=== PATIENT | male | born 1950 | race Caucasian/White ===

== ENCOUNTER → 2017-04-16 | Outpatient (REF) | payer MEDICARE, BC | LOC: M SMT 13:10 | PROVIDERS: ATTEND Nurse Practitioner Women's Health | DX: R31.29 Other microscopic hematuria (principal) | CPT/HCPCS: 81001; 87086; 88108; G0463 ==

== ENCOUNTER → 2017-10-19 | Outpatient (CLI) | payer MEDICARE, BC | LOC: M RAD 14:08 | DX: R59.0 Localized enlarged lymph nodes (principal) | CPT/HCPCS: 76536 ==

== ENCOUNTER 2018-05-17 11:20 | Day surgery (SDC) | payer MEDICARE, BC ==
[~2018-05-17] VITALS: Ht 185.4 cm; Wt 104.3 kg
[~2018-05-17 11:20] MED LIST: BENI40TA26 PO; HYDR12CA PO; LEVO100T54 PO; OMEP40CA2 PO; TRIA1CR80 TOP
[2018-05-17] MEDS ORDERED: PROPOFOL 200 MG/20 ML VIAL As Ordered ONE ×2 (13:40→14:11)
[2018-05-17] MEDS ORDERED: LIDOCAINE 2% INJ 100 MG/5 ML SDV (FOR ANES.) As Ordered ONE (13:41)
[2018-05-17] MEDS ORDERED: fentaNYL 100 MCG/2 ML INJECTION (J3010) As Ordered ONE (14:11)
--- NOTE | 2018-05-17 14:25 | ROOR ---
Patient Name: Karel Booth Procedure Date: 05/17/2018 1:59 PM Date of : 1950 Age: 67 Room: [facility] [place] Gender: Male Note Status: Finalized Procedure: Upper GI endoscopy Indications: Surveillance for malignancy due to personal history of Baker's esophagus Providers: Karel YUSUF MD Referring MD: RODERICK BARLOW MD Requesting Provider: Medicines: Monitored Anesthesia Care Complications: No immediate complications. Procedure: Pre-Anesthesia Assessment: - The heart rate, respiratory rate, oxygen saturations, blood pressure, adequacy of pulmonary ventilation, and response to care were monitored throughout the procedure. The Endoscope was introduced through the mouth, and advanced to the second part of duodenum. The upper GI endoscopy was accomplished without difficulty. The patient tolerated the procedure well. Findings: The esophagus and gastroesophageal junction were examined with white light and narrow band imaging (NBI) from a forward view and retroflexed position. There were esophageal mucosal changes secondary to established long-segment Baker's disease. These changes involved the mucosa at the upper extent of the gastric folds (40 cm from the incisors) extending to the Z-line (35 cm from the incisors). Circumferential salmon-colored mucosa was present, tongues of salmon-colored mucosa were present and scattered islands of salmon-colored mucosa were present. The maximum longitudinal extent of these esophageal mucosal changes was 5 cm in length. Mucosa was biopsied with a cold forceps for histology randomly at intervals of 1 cm. A total of 4 specimen bottles were sent to pathology. Small Hiatal Hernia. The entire examined stomach was normal. The examined duodenum was normal. 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 (5 cm, smooth, no nodules). Biopsied. - Small intermittent Hiatal Hernia. - Normal stomach. - Normal examined duodenum. Recommendation: - Await pathology results. - If biopsies show benign (no dysplasia) barretts esophagus, then repeat surveillance in 3 years. - Telephone endoscopist for pathology results in 2 weeks. Karel Yusuf MD Karel YUSUF MD 05/17/2018 2:24:46 PM This report has been signed electronically. Number of Addenda: 0 Note Initiated On: 05/17/2018 1:59 PM Estimated Blood Loss: Estimated blood loss: none.
[2018-05-17 14:35] VITALS: BP 126/72
== END 2018-05-17 14:50 | disposition home or self-care (01) ==
LOC: M OPP 11:20
PROVIDERS: ATTEND Internal Medicine Gastroenterology
DX: K22.70 Barrett's esophagus without dysplasia (principal); G47.30 Sleep apnea, unspecified; I10 Essential (primary) hypertension; E03.9 Hypothyroidism, unspecified; M10.9 Gout, unspecified; K21.9 Gastro-esophageal reflux disease without esophagitis; K44.9 Diaphragmatic hernia without obstruction or gangrene; Z79.899 Other long term (current) drug therapy; Z80.7 Family history of other malignant neoplasms of lymphoid, hematopoietic and related tissues; Z80.6 Family history of leukemia; F17.220 Nicotine dependence, chewing tobacco, uncomplicated
CPT/HCPCS: 43239; 88305; J3010

== ENCOUNTER → 2019-06-23 | Outpatient (REF) | payer MEDICARE, BC ==
[~2019-06-23] MED LIST changes: -OMEP40CA2 PO; +OMEP40CA97 PO
[2019-06-23 14:07] LABS: APPEARANCE, URINE CLEAR (CLEAR); BACTERIA, URINE AUTO NEGATIVE (NEGATIVE); BILIRUBIN, URINE AUTO NEGATIVE (NEGATIVE); BLOOD, URINE BLOOD 1+ (NEGATIVE); COLOR, URINE STRAW (YELLOW); GLUCOSE, URINE (UA) AUTO NEGATIVE (NEGATIVE); KETONE, URINE AUTO NEGATIVE (NEGATIVE); LEUKOCYTE ESTERASE, URINE AUTO NEGATIVE (NEGATIVE); NITRITE, URINE AUTO NEGATIVE (NEGATIVE); PROTEIN, URINE AUTO NEGATIVE (NEGATIVE); RBC, URINE AUTO 0 /HPF (0-3); SPECIFIC GRAVITY URINE AUTO 1.005 (1.002-1.035); SQUAMOUS EPITHELIAL CELL UR AU 0 /HPF (0-6); UROBILINOGEN, URINE AUTO 0.2 mg/dL (0.0-2.0); WBC, URINE AUTO 1 /HPF (0-3)
== END ==
LOC: M SMT 13:25
PROVIDERS: ATTEND Nurse Practitioner Women's Health
DX: R31.29 Other microscopic hematuria (principal)
CPT/HCPCS: 81001; 87086; G0463

== ENCOUNTER → 2021-09-05 | Outpatient (CLI) | payer MEDICARE, BC ==
[~2021-09-05] MED LIST changes: +AMLO1TAB24 PO; +OMEP40CA4 PO; -OMEP40CA97 PO; +SERT50TA29 PO
== END ==
LOC: M LABSMTC 11:00
PROVIDERS: ATTEND Anesthesiology
DX: Z11.52 Encounter for screening for COVID-19 (principal); Z20.822 Contact with and (suspected) exposure to COVID-19

== ENCOUNTER 2021-09-09 13:59 | Day surgery (SDC) | payer MEDICARE, BC ==
[~2021-09-09] VITALS: Ht 185.4 cm; Wt 108.9 kg
[~2021-09-09 13:59] MED LIST changes: +LIDOCAINE 2% 100MG/5ML SDV (FOR ANES.) As Ordered ONE; +NS 1,000 ML IV ONE; +propofoL 200 MG/20 ML VIAL As Ordered ONE
[2021-09-09 16:19] VITALS: BP 118/62
== END 2021-09-09 16:30 | disposition home or self-care (01) ==
LOC: M OPP 13:59
PROVIDERS: ATTEND Internal Medicine Gastroenterology
DX: K22.70 Barrett's esophagus without dysplasia (principal); K29.70 Gastritis, unspecified, without bleeding; K44.9 Diaphragmatic hernia without obstruction or gangrene; R12 Heartburn; Z79.899 Other long term (current) drug therapy; Z80.0 Family history of malignant neoplasm of digestive organs; Z80.6 Family history of leukemia; Z80.7 Family history of other malignant neoplasms of lymphoid, hematopoietic and related tissues; Z83.79 Family history of other diseases of the digestive system; F17.220 Nicotine dependence, chewing tobacco, uncomplicated

== ENCOUNTER → 2024-12-24 | Outpatient (REF) | payer MEDICARE, BC ==
[~2024-12-24] MED LIST changes: +ALLO100T PO; -BENI40TA26 PO; -LIDOCAINE 2% 100MG/5ML SDV (FOR ANES.) As Ordered ONE; +MM S100C PO; -NS 1,000 ML IV ONE; +OLME40TA56 PO; +PRES1CAP PO; +ROSU20TA86 PO; -propofoL 200 MG/20 ML VIAL As Ordered ONE
[2024-12-24 13:57] LABS: APPEARANCE, URINE CLEAR (CLEAR); BACTERIA, URINE AUTO NEGATIVE (NEGATIVE); BILIRUBIN, URINE AUTO NEGATIVE (NEGATIVE); BLOOD, URINE BLOOD NEGATIVE (NEGATIVE); GLUCOSE, URINE (UA) AUTO NEGATIVE (NEGATIVE); KETONE, URINE AUTO NEGATIVE (NEGATIVE); LEUKOCYTE ESTERASE, URINE AUTO NEGATIVE (NEGATIVE); NITRITE, URINE AUTO NEGATIVE (NEGATIVE); PROTEIN, URINE AUTO NEGATIVE (NEGATIVE); RBC, URINE AUTO 0 /HPF (0-3); SPECIFIC GRAVITY URINE AUTO 1.002 (1.002-1.035); SQUAMOUS EPITHELIAL CELL UR AU 0 /HPF (0-6); UROBILINOGEN, URINE AUTO 0.2 mg/dL (0.0-2.0); WBC, URINE AUTO 0 /HPF (0-3)
== END ==
LOC: M SMT 13:03
PROVIDERS: ATTEND Physician Assistant
DX: R31.29 Other microscopic hematuria (principal)

== ENCOUNTER 2025-05-25 11:36 | Day surgery (SDC) | payer MEDICARE, BC ==
[~2025-05-25] VITALS: Ht 185.4 cm; Wt 105.4 kg
[~2025-05-25 11:36] MED LIST changes: +HYDR12.510 PO; -HYDR12CA PO
[2025-05-25] MEDS ORDERED: LIDOCAINE 2% 100 MG/5 ML SDV (FOR ANES.) As Ordered ONE (12:53)
[2025-05-25] MEDS ORDERED: hydrALAZINE 20 MG/ML 1 ML VIAL As Ordered ONE (13:04)
[2025-05-25 13:49] VITALS: TEMP 97.1
[2025-05-25 14:08] VITALS: BP 163/79; O2SAT 98
== END 2025-05-25 14:20 | disposition home or self-care (01) ==
LOC: M OPP 11:36
PROVIDERS: ATTEND Internal Medicine Gastroenterology
DX: K22.710 Barrett's esophagus with low grade dysplasia (principal); K44.9 Diaphragmatic hernia without obstruction or gangrene; G47.30 Sleep apnea, unspecified; Z79.899 Other long term (current) drug therapy